=== PATIENT | female | born 1960 | race African-American/Black ===

== ENCOUNTER 2016-12-16 12:57 | Emergency (ER) | payer OTHER ==
[2016-12-16 13:05] VITALS: TEMP 98.3; BMI 32.3
[2016-12-16] MEDS ORDERED: PANTOPRAZOLE SODIUM 40 MG in SODIUM CHLORIDE 100 ML IVPB ONE (14:20)
[2016-12-16] MEDS ORDERED: SODIUM CHLORIDE 1,000 ML IV STA (14:20)
[2016-12-16] MEDS ORDERED: ONDANSETRON 4 MG/2 ML VIAL IVPUSH ONE (14:20)
[2016-12-16] MEDS ORDERED: ONDANSETRON 4 MG/2 ML VIAL ONE (14:45)
[2016-12-16] MEDS ORDERED: PANTOPRAZOLE SODIUM 100 ML IVPB ONE (14:45)
[2016-12-16 14:48] LABS: BASOPHIL 0.3 % (0-2.0); EOSINOPHIL 0.5 % (0-4.5); MCH 28.3 pg (25.7-33.7); MCHC 32.7 g/dl (32.0-36.0); MEAN CELL VOLUME 86.6 fl (80-96); MEAN PLT VOLUME 8.8 fl (7.5-11.1); NEUTROPHILS 53.3 % (42.8-82.8); PLATELET COUNT 188 K/MM3 (134-434); RDW 14.8 % (11.6-15.6); WHITE BLOOD COUNT 4.6 K/mm3 (4.0-10.0)
[2016-12-16 15:06] LABS: URINE APPEARANCE CLEAR; URINE BILIRUBIN NEGATIVE (NEGATIVE); URINE BLOOD NEGATIVE (NEGATIVE); URINE COLOR LTYELLOW; URINE GLUCOSE (UA) NEGATIVE (NEGATIVE); URINE KETONE NEGATIVE (NEGATIVE); URINE LEUK ESTERASE NEGATIVE (NEGATIVE); URINE NITRITE NEGATIVE (NEGATIVE); URINE PROTEIN NEGATIVE (NEGATIVE); URINE UROBILINOGEN NEGATIVE E.U./dl (0.2-1.0)
[2016-12-16 15:10] LABS: ALK PHOS 94 U/L (45-117); ANION GAP 5 (8-16); BILIRUBIN,TOTAL 0.5 mg/dL (0.2-1.0); CALCIUM 9.6 mg/dL (8.5-10.1); CO2 30 mmol/L (21-32); CREATININE 0.7 mg/dL (0.55-1.02); GLUCOSE,RANDOM 110 mg/dL (74-106); SGOT/AST 16 U/L (15-37); SGPT/ALT 23 U/L (12-78); TOT PROT 7.1 g/dl (6.4-8.2)
--- NOTE | 2016-12-16 16:51 | PDOC ---
History of Present Illness - General Chief Complaint: Nausea/Vomiting Stated Complaint: ABD PAIN. VOMITING Time Seen by Provider: 12/16/16 14:10 History Source: Patient Exam Limitations: No Limitations - History of Present Illness Initial Comments: 12/16/16 16:46 HPI: This 56-year-old female presents to the emergency room with complaints of abdominal pain, nausea, vomiting without fever. She states she does have a history of reflux and she does feel that this is very similar however she's never had nausea and vomiting with it as well. She also has a history of diverticulitis 2-3 years ago. She has been under the care of Dr. Perez one year ago for a GI workup. Chief Compliant:epigastric pain, n, v Pain location:epigastric pain Duration:since wednesday Modifying factors:none Quality:crampy/burning Radiating: Severity:monderate Time: PMH: diverticulitis, GERD, FH: Pt has not recently traveled outside the country in the last 30 days. Pt has not been in contact with people who have traveled out of the country, in contact with people who have been ill with fever, n, v, d. SH: smoking use: NONE illicit drug use: NONE alcohol use: NONE PSH: Home med use noted on JAN Allergies:nka Immunizations: PCP: Dr. Charo johnson JEWEL GAUGER: LMP: G P : Past History - Past Medical History Allergies/Adverse Reactions: Allergies Allergy/AdvReac Type Severity Reaction Status Date / Time No Known Allergies Allergy Verified 12/16/16 13:05 Home Medications: Ambulatory Orders Omeprazole [Prilosec (RX)] 40 mg PO DAILY 05/16/15 Aspirin [ASA -] 81 mg PO DAILY 12/16/16 Cyclobenzaprine HCl [Flexeril -] 10 mg PO DAILY 12/16/16 Multivitamin [Poly-Vitamin] 1 each PO DAILY 12/16/16 Naproxen [Naprosyn -] 500 mg PO BID 12/16/16 Ondansetron HCl [Zofran] 4 mg PO BID #10 tablet 12/16/16 Sennosides [Senna] 2 tab PO DAILY 12/16/16 Anemia: No Asthma: Yes Cancer: No Cardiac Disorders: Yes (h/o murmur ) CVA: No COPD: No CHF: No Dementia: No Diabetes: No GI Disorders: Yes (gerd, diverticulitis ) Disorders: No HTN: No Hypercholesterolemia: No Kidney Stones: No Liver Disease: No Suicide Attempt (Hx): Yes (2013 took pill OD. ) Seizures: No Thyroid Disease: No - Surgical History Abdominal Surgery: Yes Appendectomy: Yes Cardiac Surgery: No Cholecystectomy: Yes Lung Surgery: No Neurologic Surgery: No Orthopedic Surgery: No - Psycho/Social/Smoking Cessation Hx Anxiety: No Suicidal Ideation: No Smoking History: Current every day smoker Have you smoked in the past 12 months: Yes Number of Cigarettes Smoked Daily: 3 Cigars Per Day: 0 Information on smoking cessation initiated: No 'Breaking Loose' booklet given: 05/16/15 Hx Alcohol Use: No Drug/Substance Use Hx: No Substance Use Type: None Hx Substance Use Treatment: Yes Review of Systems - Review of Systems Able to Perform ROS?: Yes Comments:: 12/16/16 16:52 General statement: "I have abd pain" Hematology: neg history of bleeding/blood thinners Skin: Neg for lesions, rash, bruising. HEENT: Neg symptoms Respiratory: Neg SOB or difficulty in breathing Cardiac: Neg chest pain GI: + pain, n/v : Neg problems on voiding MS: Neg for joint pain/stiffness, no edema Neuro: Neg for LOC, weakness, Endocrine: Neg for excess thirst/hunger, cold/heat intolerance, excess sweating Allergies: Neg for allergies *Physical Exam - Vital Signs Last Vital Signs Temp Pulse Resp BP Pulse Ox 98.3 F 74 20 138/110 98 12/16/16 13:03 12/16/16 13:03 12/16/16 13:03 12/16/16 13:03 12/16/16 13:03 - Physical Exam Comments: 12/16/16 16:54 General Appearance: This well appearing 56 year old female V/S: hemodynamically stable, afebrile Skin: WNL of pt's skin color, no signs of pallor, mottling, cyanosis Head:symmetrical Eyes: EOM's intact, PERRLA Ears: denies pain Nose: patent Throat: lips, teeth, gums, tongue, buccal mucos pink and moist Lungs: Chest symmetry equal. Cap refill <3 seconds. Lung sounds clear Cardiac: PMI at R 4MCL space, pos S1 and S2, regular rate. Abdomen: Soft, round, +mild epigastric tender : Not observed Muscularskeletal: Gait steady, ambulated in to ER, no edema +PMS Neuro: AAOx3, cognitively intact, speech clear and appropriate. ED Treatment Course - LABORATORY CBC & Chemistry Diagram: 12/16/16 14:38 12/16/16 14:38 - ADDITIONAL ORDERS Additional order review: Laboratory Results 12/16/16 12/16/16 14:41 14:38 Sodium 141 Potassium 4.3 D Chloride 106 Carbon Dioxide 30 Anion Gap 5 L BUN 8 D Creatinine 0.7 Creat Clearance w eGFR > 60 Random Glucose 110 H Calcium 9.6 Total Bilirubin 0.5 AST 16 ALT 23 Alkaline Phosphatase 94 D Total Protein 7.1 Albumin 4.0 Lipase 67 L Urine Color Ltyellow Urine Appearance Clear Urine pH 8.0 D Ur Specific [place] 1.008 Urine Protein Negative Urine Glucose (UA) Negative Urine Ketones Negative Urine Blood Negative Urine Nitrite Negative Urine Bilirubin Negative Urine Urobilinogen Negative Ur Leukocyte Esterase Negative 12/16/16 14:38 RBC 4.67 MCV 86.6 MCHC 32.7 RDW 14.8 MPV 8.8 Neutrophils % 53.3 D Lymphocytes % 39.9 D Monocytes % 6.0 Eosinophils % 0.5 Basophils % 0.3 - RADIOLOGY Radiology Studies Ordered: Category Date Time Status ABDOMEN & PELVIS CT W/O CONTR [CT] Stat CT Scan 12/16/16 14:20 Ordered - Medications Given in the ED: ED Medications Discontinued Medications Generic Name Dose Route Start Last Admin Trade Name Freq PRN Reason Stop Dose Admin Pantoprazole Sodium 40 mg/ 100 mls @ 200 mls/hr 12/16/16 14:20 12/16/16 14:54 Sodium Chloride IVPB 12/16/16 14:49 200 mls/hr ONCE ONE Administration Sodium Chloride 1,000 mls @ 1,000 mls/hr 12/16/16 14:20 12/16/16 14:54 Normal Saline - IV 12/16/16 15:19 1,000 mls/hr ASDIR STA Administration Ondansetron HCl 4 mg 12/16/16 14:20 12/16/16 14:52 Zofran Injection IVPUSH 12/16/16 14:21 4 mg ONCE ONE Administration Medical Decision Making - Medical Decision Making 12/16/16 16:54 Patient initially seen and examined. Patient is complaining of some abdominal pain epigastric as well as some nausea and vomiting. She denies any fever. She does have a history of diverticulitis. A/P Rule out diverticulitis, GI distress, ulcerative disease. 1 labs 2 IV fluids with Zofran 3 by mouth abdominal pelvic CAT scan to rule out diverticulitis and other ulcerative diseases Patient states she feels much better after the IV fluid and Zofran. There has been no vomiting while she's been here in the emergency room. 12/16/16 16:56 Laboratory Tests 12/16/16 12/16/16 14:38 14:38 WBC 4.6 Hgb 13.2 Hct 40.5 Plt Count 188 Sodium 141 Potassium 4.3 D Chloride 106 Carbon Dioxide 30 Anion Gap 5 L BUN 8 D Creatinine 0.7 Creat Clearance w eGFR > 60 Random Glucose 110 H Calcium 9.6 Total Bilirubin 0.5 AST 16 ALT 23 Alkaline Phosphatase 94 D Total Protein 7.1 Albumin 4.0 Lipase 67 L UA negative 12/16/16 18:[address] neg for acute pathology and concern related to her abd pain, n, v. Pt feeling somewhat better. I will discharge her with zofran, zantac and follow up with Dr. Perez if need be. *DC/Admit/Observation/Transfer Diagnosis at time of Disposition: Epigastric abdominal pain - Discharge Dispostion Disposition: HOME Condition at time of disposition: Stable Admit: No - Patient Instructions Printed Discharge Instructions: [place] Diet Additional Instructions: Discharge instructions 1. Please follow up with your primary physician within the next few days and explain that you have been seen here in the Emergency Room for epigastric pain and nausea and vomiting. . 2. If you experience any worsening of symptoms, please return to the ER 3. Rest, stick with a bland diet, avoid alcohol and caffeine beverages. Avoid spicy foods. May take Pepcid or Zantac for relief of reflux, burning,in stomach 4. Drink plenty of water - Post Discharge Activity Work/School Note: Back to Work
[2016-12-16 18:50] VITALS: BP 129/89; PULSE 75
== END 2016-12-16 18:50 | disposition home or self-care (01) ==
LOC: JER 12:57
PROC: 3E033GC Introduction of Other Therapeutic Substance into Peripheral Vein, Percutaneous Approach (ICD-10-PCS; principal; 2016-12-16)
PROC: 3E0337Z Introduction of Electrolytic and Water Balance Substance into Peripheral Vein, Percutaneous Approach (ICD-10-PCS; 2016-12-16)
DX: R10.13 Epigastric pain (principal); K21.9 Gastro-esophageal reflux disease without esophagitis; R01.1 Cardiac murmur, unspecified; J45.909 Unspecified asthma, uncomplicated; F17.210 Nicotine dependence, cigarettes, uncomplicated
CPT/HCPCS: 36415; 74176-TC; 80053; 81003; 83690; 85025; 96361; 96365; 96375; 99284-25

== ENCOUNTER 2020-11-25 00:14 | Inpatient (IN) | payer OTHER ==
[2020-11-25 00:37] VITALS: BMI 32.0
[2020-11-25] MEDS ORDERED: ONDANSETRON 4 MG/2 ML VIAL IVPUSH ONE (00:39)
[2020-11-25] MEDS ORDERED: LACTATED RINGERS SOLUTION 1000 ML INFUS.BAG IV ONE (00:40)
[2020-11-25] MEDS ORDERED: ACETAMINOPHEN 1000 MG/100 ML VIAL (NON FORMULARY) IVPB ONE ×2 (00:41→06:05)
[2020-11-25] MEDS ORDERED: morphine CARPU-JECT 2 MG/1 ML DISP.SYRIN IVPUSH ONE (00:54)
[2020-11-25] MEDS ORDERED: ENALAPRIL MALEATE 10 MG TABLET PO ONE (00:59)
[2020-11-25] MEDS ORDERED: ACETAMINOPHEN INJECTION 100 ML IVPB ONE ×2 (01:51→06:30)
[2020-11-25] MEDS ORDERED: MORPHINE SULFATE 2 MG/ML VIAL ONE ×3 (01:51→17:13)
[2020-11-25] MEDS ORDERED: ONDANSETRON 4 MG/2 ML VIAL ONE (01:51)
[2020-11-25 01:52] LABS: BASO % 1.2 % (0-2.0); EOS % 0.9 % (0-4.5); HEMATOCRIT 35.2 % (32.4-45.2); HEMOGLOBIN 11.6 GM/dL (10.7-15.3); LYMPH % 39.4 % (8-40); MCH 28.7 pg (25.7-33.7); MCHC 32.9 g/dl (32.0-36.0); MEAN CELL VOLUME 87.2 fl (80-96); MONO % 5.8 % (3.8-10.2); NEUT % 52.7 % (42.8-82.8); PLATELET COUNT 227 K/MM3 (134-434); RBC 4.03 M/mm3 (3.60-5.2); RDW 14.6 % (11.6-15.6); WHITE BLOOD COUNT 7.2 K/mm3 (4.0-10.0)
[2020-11-25 02:12] LABS: CHLORIDE 108 mmol/L (98-107); POTASSIUM 3.3 mmol/L (3.5-5.1); SODIUM 145 mmol/L (136-145)
[2020-11-25 02:16] LABS: ALBUMIN 3.5 g/dl (3.4-5.0); ANION GAP 5 MMOL/L (8-16); BLOOD UREA NITROGEN 17.9 mg/dL (7-18); CALCIUM 9.6 mg/dL (8.5-10.1); CO2 32 mmol/L (21-32); GLUCOSE,RANDOM 103 mg/dL (74-106); LIPASE 40 U/L (73-393)
[2020-11-25 02:18] LABS: CREATININE 0.8 mg/dL (0.55-1.3); SGOT/AST 30 U/L (15-37); SGPT/ALT 32 U/L (13-61)
[2020-11-25 02:20] LABS: BILIRUBIN,TOTAL 0.4 mg/dL (0.2-1); TOT PROT 6.7 g/dl (6.4-8.2)
[2020-11-25 02:21] LABS: ALK PHOS 80 U/L (45-117)
[2020-11-25] MEDS ORDERED: POTASSIUM CHLORIDE 20 MEQ PREMIX IVPB 100 ML IVPB ONE (03:06)
[2020-11-25] MEDS ORDERED: morphine CARPU-JECT 4 MG/1 ML DISP.SYRIN IVPUSH ONE ×2 (03:54→07:13)
[2020-11-25] MEDS ORDERED: KCL 10 MEQ IVPB 20 MEQ/200 ML INFUS.BAG IVPB ONE (04:15)
[2020-11-25 04:24] LABS: URINE APPEARANCE CLEAR; URINE BILIRUBIN NEGATIVE (NEGATIVE); URINE COLOR YELLOW; URINE GLUCOSE (UA) NEGATIVE (NEGATIVE); URINE KETONE 1+ (NEGATIVE); URINE LEUK ESTERASE NEGATIVE (NEGATIVE); URINE NITRITE NEGATIVE (NEGATIVE); URINE PROTEIN NEGATIVE (NEGATIVE); URINE UROBILINOGEN 0.2 mg/dL (0.2-1.0)
[2020-11-25] MEDS: KCL 10 MEQ IVPB 10 MEQ/100 ML INFUS.BAG IVPB SCH ×2 (04:26→11:30)
[2020-11-25 05:40] LABS: PLATELET ESTIMATE ADEQUATE
[2020-11-25] MEDS ORDERED: morphine SULFATE 4 MG/ML VIAL ONE (11:23)
[2020-11-25] MEDS ORDERED: SENNOSIDES 8.6MG TABLET (FP) PO ONE (13:52)
[2020-11-25] MEDS: DEXTROSE 5%-0.45% SALINE 1,000 ML IV SCH (13:59)
[2020-11-25] MEDS: SENNOSIDES 8.6MG TABLET (FP) PO SCH (14:45)
[2020-11-25] MEDS: MORPHINE SULFATE 2 MG/ML VIAL IVPUSH PRN (17:30)
[2020-11-26] MEDS: MORPHINE SULFATE 2 MG/ML VIAL IVPUSH PRN ×2 (00:19→17:05)
[2020-11-26] MEDS ORDERED: MELATONIN 5 MG TABLETS PO ONE ×2 (03:11→03:12)
[2020-11-26 08:29] LABS: BASO % 0.2 % (0-2.0); EOS % 1.7 % (0-4.5); HEMATOCRIT 29.7 % (32.4-45.2); LYMPH % 38.1 % (8-40); MCH 29.5 pg (25.7-33.7); MCHC 33.5 g/dl (32.0-36.0); MEAN PLT VOLUME 9.2 fl (7.5-11.1); MONO % 5.9 % (3.8-10.2); NEUT % 54.1 % (42.8-82.8); PLATELET COUNT 180 K/MM3 (134-434); RBC 3.38 M/mm3 (3.60-5.2); RDW 14.9 % (11.6-15.6); WHITE BLOOD COUNT 4.6 K/mm3 (4.0-10.0)
[2020-11-26 08:50] LABS: BLOOD UREA NITROGEN 8.7 mg/dL (7-18); CALCIUM 8.5 mg/dL (8.5-10.1)
[2020-11-26 08:51] LABS: ALBUMIN 2.9 g/dl (3.4-5.0)
[2020-11-26 08:54] LABS: CREATININE 0.6 mg/dL (0.55-1.3)
[2020-11-26 08:55] LABS: BILIRUBIN,TOTAL 0.6 mg/dL (0.2-1); TOT PROT 5.5 g/dl (6.4-8.2)
[2020-11-26] MEDS: ENOXAPARIN NA (PORCINE) 40 MG/0.4 ML DISP.SYRIN SQ SCH (09:13)
[2020-11-26] MEDS: SENNOSIDES 8.6MG TABLET (FP) PO SCH (09:13)
[2020-11-26] MEDS: ONDANSETRON 4 MG/2 ML VIAL IVPUSH PRN ×2 (09:14→23:02)
[2020-11-26] MEDS ORDERED: PT OWN MED DRAWER 7, Y5N ONE (09:16)
[2020-11-26] MEDS: ENALAPRIL MALEATE 10 MG TABLET PO SCH (09:17)
[2020-11-26] MEDS: ASPIRIN 81 MG CHEWABLE TABLETS PO SCH (10:53)
[2020-11-26] MEDS: DEXTROSE 5%-0.45% SALINE 1,000 ML IV SCH (17:01)
[2020-11-26] MEDS ORDERED: FLU VACCINE (FLULAVAL) PF 60 MCG/0.5 ML SYRINGE 2020-2021 IM ONE (18:07)
[2020-11-26] MEDS ORDERED: MELATONIN 5 MG TABLETS PO PRN (19:40)
[2020-11-26] MEDS ORDERED: MORPHINE SULFATE 2 MG/ML VIAL IVPUSH PRN (19:45)
[2020-11-26] MEDS ORDERED: POTASSIUM CHLORIDE ORAL LIQUID 20 MEQ/15 ML PO ONE (19:47)
[2020-11-26] MEDS: PANTOPRAZOLE 40 MG TABLET PO SCH (20:27)
[2020-11-27 09:02] LABS: BASO % 0.4 % (0-2.0); EOS % 1.8 % (0-4.5); HEMATOCRIT 30.7 % (32.4-45.2); HEMOGLOBIN 10.3 GM/dL (10.7-15.3); LYMPH % 45.5 % (8-40); MCH 29.3 pg (25.7-33.7); MCHC 33.5 g/dl (32.0-36.0); MEAN CELL VOLUME 87.4 fl (80-96); MEAN PLT VOLUME 9.3 fl (7.5-11.1); MONO % 6.1 % (3.8-10.2); NEUT % 46.2 % (42.8-82.8); PLATELET COUNT 185 K/MM3 (134-434); RBC 3.51 M/mm3 (3.60-5.2); RDW 14.7 % (11.6-15.6); WHITE BLOOD COUNT 4.7 K/mm3 (4.0-10.0)
[2020-11-27 09:15] LABS: POTASSIUM 3.3 mmol/L (3.5-5.1)
[2020-11-27 09:21] LABS: ALBUMIN 2.9 g/dl (3.4-5.0); BLOOD UREA NITROGEN 7.8 mg/dL (7-18); CALCIUM 8.5 mg/dL (8.5-10.1)
[2020-11-27 09:25] LABS: BILIRUBIN,TOTAL 0.6 mg/dL (0.2-1); CREATININE 0.7 mg/dL (0.55-1.3); TOT PROT 5.5 g/dl (6.4-8.2)
[2020-11-27] MEDS: ENOXAPARIN NA (PORCINE) 40 MG/0.4 ML DISP.SYRIN SQ SCH (09:26)
[2020-11-27] MEDS: PANTOPRAZOLE 40 MG TABLET PO SCH (09:27)
[2020-11-27] MEDS: SENNOSIDES 8.6MG TABLET (FP) PO SCH (09:27)
[2020-11-27] MEDS: ASPIRIN 81 MG CHEWABLE TABLETS PO SCH (09:27)
[2020-11-27] MEDS ORDERED: PT OWN MED DRAWER 7, Y5N ONE (09:31)
[2020-11-27] MEDS: ONDANSETRON 4 MG/2 ML VIAL IVPUSH PRN ×2 (09:33→16:23)
[2020-11-27] MEDS: ENALAPRIL MALEATE 10 MG TABLET PO SCH (09:33)
[2020-11-27] MEDS ORDERED: POTASSIUM CHLORIDE TABS 20 MEQ TABLET.ER (FP) PO ONE (11:41)
[2020-11-27 19:01] VITALS: BP 146/79; PULSE 58; TEMP 98.9
== END 2020-11-27 18:17 | disposition home or self-care (01) | DRG 392 ==
LOC: JER 00:14 → JERBED 04:18 → J5S 11-26 00:01
PROVIDERS: ADMIT Family Medicine Geriatric Medicine; ATTEND Family Medicine Geriatric Medicine
DX: K52.9 Noninfective gastroenteritis and colitis, unspecified (principal); I10 Essential (primary) hypertension; E87.6 Hypokalemia; K21.9 Gastro-esophageal reflux disease without esophagitis; R10.32 Left lower quadrant pain; F17.210 Nicotine dependence, cigarettes, uncomplicated
CPT/HCPCS: 36415; 74177-TC; 80053; 81003; 82550; 82553; 83690; 84484; 85025; 87086; 93005; 93010; 99285-25; C9803; G0008; J0131; Q2036; Q9967; U0003

== ENCOUNTER 2021-11-19 07:58 | Emergency (ER) | payer OTHER ==
[2021-11-19 09:10] VITALS: PULSE 63; TEMP 98.3; BMI 29.0
[2021-11-19] MEDS ORDERED: ASPIRIN 81 MG CHEWABLE TABLETS PO ONE (09:27)
[2021-11-19] MEDS ORDERED: ASPIRIN 81 MG CHEWABLE TABLETS ONE (10:35)
[2021-11-19 10:42] LABS: BASO % 0.7 % (0-2.0); EOS % 1.3 % (0-4.5); HEMATOCRIT 35.7 % (32.4-45.2); HEMOGLOBIN 11.7 GM/dL (10.7-15.3); LYMPH % 53.7 % (8-40); MCH 29.2 pg (25.7-33.7); MCHC 32.8 g/dl (32.0-36.0); MEAN CELL VOLUME 88.9 fl (80-96); MONO % 5.8 % (3.8-10.2); NEUT % 38.5 % (42.8-82.8); PLATELET COUNT 209 10^3/uL (134-434); RBC 4.01 M/mm3 (3.60-5.2); RDW 14.6 % (11.6-15.6); WHITE BLOOD COUNT 4.9 K/mm3 (4.0-10.0)
[2021-11-19 11:03] LABS: CHLORIDE 111 mmol/L (98-107); SODIUM 142 mmol/L (136-145)
[2021-11-19 11:05] LABS: CALCIUM 9.3 mg/dL (8.5-10.1)
[2021-11-19 11:06] LABS: ALBUMIN 3.2 g/dl (3.4-5.0); ANION GAP 6 MMOL/L (8-16); BLOOD UREA NITROGEN 7.3 mg/dL (7-18); CO2 25 mmol/L (21-32); GLUCOSE,RANDOM 82 mg/dL (74-106)
[2021-11-19 11:09] LABS: CREATININE 0.6 mg/dL (0.55-1.3); SGPT/ALT 17 U/L (13-61)
[2021-11-19 11:11] LABS: BILIRUBIN,TOTAL 0.5 mg/dL (0.2-1); SGOT/AST 15 U/L (15-37); TOT PROT 6.2 g/dl (6.4-8.2)
[2021-11-19 11:14] LABS: ALK PHOS 61 U/L (45-117)
[2021-11-19 13:24] VITALS: BP 118/79
== END 2021-11-19 15:19 | disposition home or self-care (01) ==
LOC: JER 07:58
DX: R07.9 Chest pain, unspecified (principal)
CPT/HCPCS: 36415; 71046-TC-FY; 80053; 84484; 85025; 93005; 93010; 99285-25; C9803; U0003; U0005

== ENCOUNTER 2021-11-24 04:49 | Day surgery (SDC) | payer OTHER ==
[2021-11-20 13:25] VITALS: BMI 29.0
[2021-11-24] MEDS ORDERED: ONDANSETRON 4 MG/2 ML VIAL IVPUSH PRN (09:21)
[2021-11-24] MEDS ORDERED: oxyCODONE HCL 5 MG TABLET PO PRN (09:21)
[2021-11-24] MEDS ORDERED: PROMETHAZINE HCL 25 MG/1 ML VIAL IVPUSH PRN (09:21)
[2021-11-24] MEDS ORDERED: LACTATED RINGERS SOLUTION 1,000 ML IV SCH (09:30)
[2021-11-24] MEDS ORDERED: LIDOCAINE HCL 1%, 10 MG/ML (20ML VIAL) NR ONE ×2 (09:33→10:05)
[2021-11-24] MEDS ORDERED: DEXAMETHASONE SOD PHOSPHATE 4 MG/1 ML VIAL IVPUSH ONE ×2 (09:34→10:15)
[2021-11-24] MEDS ORDERED: BUPIVACAINE HCL/PF 0.5% (5MG/ML) 10 ML VIAL IJ ONE ×2 (09:34→10:05)
[2021-11-24] MEDS ORDERED: LIDOCAINE HCL 1%, 10 MG/ML (20ML VIAL) ONE (09:37)
[2021-11-24] MEDS ORDERED: MIDAZOLAM HCL 2 MG/2 ML SINGLE DOSE VIAL ONE (09:37)
[2021-11-24] MEDS ORDERED: BUPIVACAINE HCL/PF 0.5% (5MG/ML) 10 ML VIAL ONE (09:37)
[2021-11-24] MEDS ORDERED: PROPOFOL 20 ML ONE (09:37)
[2021-11-24] MEDS ORDERED: DEXAMETHASONE SOD PHOSPHATE 4 MG/1 ML VIAL ONE (09:37)
[2021-11-24] MEDS ORDERED: GLYCOPYRROLATE 0.2 MG/1 ML VIAL ONE (09:38)
[2021-11-24] MEDS ORDERED: SODIUM CHLORIDE 0.9% P/F 10 ML VIAL IJ ONE (09:38)
[2021-11-24] MEDS ORDERED: ceFAZolin SODIUM 1 GM VIAL ONE (09:38)
[2021-11-24] MEDS ORDERED: LIDOCAINE HCL/PF 2% SDV 5ML VIAL ONE ×2 (09:40→10:49)
[2021-11-24] MEDS ORDERED: ceFAZolin SODIUM 1 GM VIAL IVPB ONE (10:00)
[2021-11-24] MEDS ORDERED: GENTAMICIN SO4 80 MG/2 ML VIAL ONE (10:05)
[2021-11-24] MEDS ORDERED: KETOROLAC TROMETHAMINE 30 MG/1 ML VIAL ONE (10:06)
[2021-11-24] MEDS ORDERED: SUCCINYLCHOLINE CHLORIDE 200 MG/10 ML SYRINGE ONE (10:49)
[2021-11-24] MEDS ORDERED: METOCLOPRAMIDE HCL INJECTION 10 MG/2 ML VIAL IVPUSH ONE (11:29)
[2021-11-24] MEDS ORDERED: METOCLOPRAMIDE HCL INJECTION 10 MG/2 ML VIAL ONE (11:29)
[2021-11-24] MEDS ORDERED: ONDANSETRON 4 MG/2 ML VIAL ONE (11:29)
[2021-11-24] MEDS ORDERED: ONDANSETRON 4 MG/2 ML VIAL IVPUSH ONE (11:30)
[2021-11-24] MEDS ORDERED: METOCLOPRAMIDE HCL INJECTION 10 MG/2 ML VIAL IVPB ONE (11:40)
[2021-11-24 15:09] VITALS: BP 114/69; PULSE 53; TEMP 97.2
== END 2021-11-24 15:08 | disposition home or self-care (01) ==
LOC: JASU-SURG 04:49
PROVIDERS: ATTEND Podiatrist
PROC: 0HBRXZZ Excision of Toe Nail, External Approach (ICD-10-PCS; 2021-11-24)
PROC: 0QBR0ZZ Excision of Left Toe Phalanx, Open Approach (ICD-10-PCS; principal; 2021-11-24 09:30)
DX: M25.775 Osteophyte, left foot (principal); M79.675 Pain in left toe(s)
CPT/HCPCS: 36415; 73630-TC-LT; 82550; 82553; 84484; 88304-TC; 88305-TC; 88311-TC; 88312-TC; 93005; 93010; 94760

== ENCOUNTER → 2024-03-30 | Day surgery (SDC) | payer BC | END | disposition home or self-care (01) | LOC: JRADIR 10:26 | PROVIDERS: ATTEND Internal Medicine Endocrinology, Diabetes & Metabolism | PROC: 0G9H3ZX Drainage of Right Thyroid Gland Lobe, Percutaneous Approach, Diagnostic (ICD-10-PCS; principal; 2024-03-30) | DX: E04.1 Nontoxic single thyroid nodule (principal) | CPT/HCPCS: 10005; 76942; 88173; 88305-TC ==